=== PATIENT | female | born 1940 | race Caucasian/White ===

== ENCOUNTER 2020-11-04 00:03 | Emergency (ER) | payer MEDICARE ==
[~2020-11-04] VITALS: Ht 154.9 cm; Wt 58.2 kg
--- NOTE | 2020-11-04 01:02 | PHYS DOC ---
Past Medical History Past Medical History: Dementia Additional Past Medical Histor: Parkinsonism Past Medical History Limited secondary to dementia Additional Past Surgical Histo: Cataract Past Surgical History Limited secondary to dementia Smoking Status: Never Smoker Alcohol Use: None Drug Use: None Social History Limited secondary to dementia General Adult EDM: Chief Complaint: MECHANICAL FALL HPI: HPI: Patient is a 79 year old female who presents with chief complaint of midline thoracic back pain after a ground level fall earlier this evening. Patient was found down in her living room by her . EMS was called and able to get patient off ground after 15 minutes. Cervical collar placed. Patient denies radiation. Denies associated symptoms. Denies syncopal episode or loss of consciousness. Fall was not witnessed. Patient denies fever, chills, changes in urine output or consistency. Patient attributes recent history of falls to her change in medications for previous diagnosis of Parkinson disease. Pain severity 6/10. History of present illness limited secondary to dementia. Review of Systems: Review of Systems: Constitutional: Denies fever or chills Eyes: Denies redness or eye pain HENT: Denies nasal congestion or epistaxis Respiratory: Denies cough or shortness of breath Musculoskeletal: Denies joint pain. Reports thoracic back pain. Integument: Denies laceration Neurologic: Denies headache Review of systems limited secondary to dementia Heart Score: C/O Chest Pain: No Allergies: Allergies: Allergies Coded Allergies Type Severity Reaction Last Updated Verified Sulfa (Sulfonamide Antibiotics) Allergy Unknown 11/04/20 Yes Physical Exam: PE: Constitutional: Well developed, well nourished, mild distress, non-toxic appearance HENT: Normocephalic, atraumatic Eyes: PERRL, EOMI, conjunctiva normal, no discharge Neck: Normal range of motion, no tenderness, supple Lungs & Thorax: No respiratory distress, equal chest rise and fall Abdomen: Soft, no tenderness Skin: Warm, dry, no erythema, no rash. Superficial abrasion on left side mid- thoracic region of back. Back: Left sided thoracic tenderness, no CVA tenderness Extremities: No tenderness, ROM intact, 1+ pre-tibial edema bilaterally. Neurologic: Alert and oriented X 3, normal motor function, normal sensory function, no focal deficits noted. Parkinson disease. Mild dementia. Psychologic: Affect normal, judgment normal EKG: EKG: Sinus Rhythm. Rate 76 bpm. QRS 82 mm. Qtc 450 ms. Normal [place]. NO STEMI. Read by Abhijit Daniel D.O. at 0020. [] Radiology/Procedures: Radiology/Procedures: PROCEDURE: CT head without contrast. CT cervical spine without contrast. CT thoracic spine without contrast. CT lumbar spine without contrast. PQRS statement: CT scans at this facility use dose reduction including either au tomated exposure control, iterative reconstructions, and /or weight based radiation dosing via mA and kV modification when appropriate to reduce radiation dose to as low as reasonably achievable. HISTORY: There is mild generalized brain atrophy. No intracranial hemorrhage, mass, hydrocephalus, extra-axial fluid collections or infarction. Imaged orbits, mastoids and bones are unremarkable. IMPRESSION: No acute intracranial abnormality. CT cervical spine findings: Craniocervical junction intact. Cervical vertebral body height and alignment intact. No fracture of the cervical spine. Apical pulmonary interstitial thickening may be edema. Multilevel cervical disc height loss as well as disc herniations and disc osteophytes and uncovertebral and facet spurring with multilevel spinal canal and neural foraminal stenoses. The paraspinal tissues are unremarkable. IMPRESSION: No acute osseous injury of the cervical spine. Cervical disc disease. Thoracic spine findings: Acute traumatic mildly buckled left posterior seventh rib fracture. Acute traumatic nondisplaced fracture of the left posterior ninth rib at the costovertebral junction. Thoracic vertebral body height and alignment intact. No fracture of the thoracic spine. No spondylolysis defect. Multilevel thoracic disc height loss and scattered shallow disc bulges and protrusions which at the mid to lower thoracic spine could contribute to mild spinal canal stenosis. Diffuse pulmonary interstitial thickening likely edema. IMPRESSION: 1. No acute osseous injury of the thoracic spine. 2. Acute traumatic posterior left seventh and ninth rib fractures. 3. Pulmonary interstitial edema. CT lumbar spine findings: Lumbar vertebral body height and alignment intact. Grade 1 anterolisthesis of L4 on L5. No fracture. No spondylolysis defect. There are lumbar disc bulges and facet spurring with spinal canal and neural foraminal stenoses at several levels. There is severe spinal canal stenosis at L3-L4. There is markedly severe spinal canal stenosis at L4-L5 with probable marked compression of the dural sac as well as severe neural foraminal stenoses. At L5-S1 there is probable moderate to severe spinal canal stenosis and severe neural foraminal stenoses. IMPRESSION: No acute osseous injury of the lumbar spine. Lumbar disc disease and facet arthrosis as described above. Electronically signed by: Kiko Holbrook MD (11/04/2020 1:41 AM) JESSIE PROCEDURE: CHEST AP ONLY AP chest x-ray HISTORY: Rib fractures after fall. FINDINGS: Heart size normal. Mediastinal silhouette is normal. Mild pulmonary interstitial thickening likely edema. No pneumothorax. Mild pleural thickening versus a tiny pleural effusion along the left diaphragm blunting the lateral angle. Calcified granulomas right lung base. The left posterior seventh and ninth rib fractures on prior CT thoracic spine imaging cannot be visualized on this x-ray. IMPRESSION: Pulmonary interstitial edema. No pneumothorax. See above. Electronically signed by: Kiko Holbrook MD (11/04/2020 2:19 AM) JESSIE Course & Med Decision Making: Course & Med Decision Making Patient is a 79 year old female who presents with chief complaint of thoracic back pain after a ground level fall earlier this evening. Patient was found down in her living room by her . EMS was called and able to get patient off ground after 15 minutes. Cervical collar placed. Denies syncopal episode or loss of consciousness. Fall was not witnessed. Patient denies fever, chills, changes in urine output or consistency. Patient has PMH of parkinson disease with associated unsteady gait and dementia. Patient reports gait instability is getting worse after recent change in medications. Recent history of ground level falls with last event being 3 weeks prior to today's fall. Pain severity 6/10. Pain was addressed medically. CT of cervical, thoracic and lumbar spine was obtained. Cervical spine cleared of fracture and cervical collar was removed. Fracture to posterior left rib 7 and 9 were found without pneumothorax. Chest XR was ordered to rule out pneumothorax. Patient was given incentive spirometer with instruction for atelectasis PPX. Labs were drawn along with UA to rule out UTI. Patient was found to have urinary retention of 500 mL via bladder scan ult rasound. Horta catheter was placed for Urinary retention. 750 mL of urine output. Pertinent Labs and Imaging studies reviewed. (See chart for details). Patient offered admission for pain control. Patient elected to be discharge home with her . Patient stable and discharged at her request with outpatient follow-up with PCP or Urologist for Horta removal in 2-3 days. Discussed findings and plan with patient and , who acknowledge understanding and agreement. [] Jacqueline Disclaimer: Jacqueline Disclaimer: This electronic medical record was generated, in whole or in part, using a voice recognition dictation system. Departure Departure Impression: Primary Impression: Fall Qualified Codes: W19.XXXA - Unspecified fall, initial encounter Additional Impressions: Rib fractures Qualified Codes: S22.42XA - Multiple fractures of ribs, left side, initial encounter for closed fracture Acute urinary retention Disposition: 01 DC HOME SELF CARE/HOMELESS Condition: STABLE Patient Instructions: Fall Prevention and Home Safety, [id number], Horta Catheter Care, Adult, Incentive Spirometer, Rib Fracture, [id number], Urinary Retention, Acute, Female, [id number] Additional Instructions: Ice to area of discomfort 20 minutes on then leave off for next 20 minutes. Repeat several times daily as needed for the next few days. Please follow closely with your family physician and/or urologist for removal of Horta catheter in the next 2 to 3 days. [facility] [address] [address] Scripts Acetaminophen With Codeine (ACETAMINOPHEN-COD #3 TABLET) 1 Each Tablet 1 TAB PO PRN Q6HRS PRN for PAIN, #14 TAB Prov: ABHIJIT DANIEL DO 11/04/20 ABHIJIT DANIEL DO Nov 04, 2020 01:02
--- NOTE | 2020-11-04 01:43 | RAD ---
CT head without contrast. CT cervical spine without contrast. CT thoracic spine without contrast. CT lumbar spine without contrast. PQRS statement: CT scans at this facility use dose reduction including either automated exposure cont rol, iterative reconstructions, and /or weight based radiation dosing via mA and kV modification when appropriate to reduce radiation dose to as low as reasonably achievable. HISTORY: There is mild generalized brain atrophy. No intracranial hemorrhage, mass, hydrocephalus, ex tra-axial fluid collections or infarction. Imaged orbits, mastoids and bones are unremarkable. IMPRESSION: No acute intracranial abnormality. CT cervical spine findings: Craniocervical junction intact. Cervical vertebral body height and alignm ent intact. No fracture of the cervical spine. Apical pulmonary interstitial thickening may be edema. Multilevel cervical disc height loss as well as disc herniations and disc osteophytes and uncoverteb ral and facet spurring with multilevel spinal canal and neural foraminal stenoses. The paraspinal tis sues are unremarkable. IMPRESSION: No acute osseous injury of the cervical spine. Cervical disc disease. Thoracic spine findings: Acute traumatic mildly buckled left posterior seventh rib fracture. Acute tr aumatic nondisplaced fracture of the left posterior ninth rib at the costovertebral junction. Thoraci c vertebral body height and alignment intact. No fracture of the thoracic spine. No spondylolysis def ect. Multilevel thoracic disc height loss and scattered shallow disc bulges and protrusions which at the mid to lower thoracic spine could contribute to mild spinal canal stenosis. Diffuse pulmonary int erstitial thickening likely edema. IMPRESSION: 1. No acute osseous injury of the thoracic spine. 2. Acute traumatic posterior left seventh and ninth rib fractures. 3. Pulmonary interstitial edema. CT lumbar spine findings: Lumbar vertebral body height and alignment intact. Grade 1 anterolisthesis of L4 on L5. No fracture. No spondylolysis defect. There are lumbar disc bulges and facet spurring wi th spinal canal and neural foraminal stenoses at several levels. There is severe spinal canal stenosi s at L3-L4. There is markedly severe spinal canal stenosis at L4-L5 with probable marked compression of the dural sac as well as severe neural foraminal stenoses. At L5-S1 there is probable moderate to severe spinal canal stenosis and severe neural foraminal stenoses. IMPRESSION: No acute osseous injury of the lumbar spine. Lumbar disc disease and facet arthrosis as d escribed above. Electronically signed by: Kiko Holbrook MD (11/04/2020 1:41 AM) [facility]
[2020-11-04] MEDS ORDERED: fentaNYL PF VIAL 100 MCG/2 ML VIAL IV ONE (02:15)
--- NOTE | 2020-11-04 02:22 | RAD ---
AP chest x-ray HISTORY: Rib fractures after fall. FINDINGS: Heart size normal. Mediastinal silhouette is normal. Mild pulmonary interstitial thickening likely edema. No pneumothorax. Mild pleural thickening versus a tiny pleural effusion along the left diaphragm blunting the lateral angle. Calcified granulomas right lung base. The left posterior seven th and ninth rib fractures on prior CT thoracic spine imaging cannot be visualized on this x-ray. IMPRESSION: Pulmonary interstitial edema. No pneumothorax. See above. Electronically signed by: Kiko Holbrook MD (11/04/2020 2:19 AM) [facility]
[2020-11-04] MEDS ORDERED: IV NORMAL SALINE 1000ML BAG 1,000 ML IV ONE (03:00)
[2020-11-04 03:12] LABS: BASO # 0.1 x10^3/uL (0.0-0.2); BASO % 1 % (0-3); EOS % 0 % (0-3); HEMATOCRIT 37.2 % (36.0-47.0); HEMOGLOBIN 12.6 g/dL (12.0-15.5); LYMPH # 1.5 x10^3/uL (1.0-4.8); LYMPH % 14 % (24-48); MEAN CORPUSCULAR HEMOGLOBIN 32 pg (25-35); MEAN CORPUSCULAR HGB CONC 34 g/dL (31-37); MEAN CORPUSCULAR VOLUME 95 fL (79-100); MONO # 0.5 x10^3/uL (0.0-1.1); MONO % 5 % (0-9); NEUT # 8.4 x10^3/uL (1.8-7.7); NEUT % 80 % (31-73); PLATELET COUNT 198 x10^3/uL (140-400); RED BLOOD COUNT 3.91 x10^6/uL (3.50-5.40); RED CELL DISTRIBUTION WIDTH 13.8 % (11.5-14.5); WHITE BLOOD COUNT 10.5 x10^3/uL (4.0-11.0)
[2020-11-04 03:21] LABS: CALCIUM 8.8 mg/dL (8.5-10.1); CREATININE 0.9 mg/dL (0.6-1.0); GFR 60.2; POTASSIUM 3.9 mmol/L (3.5-5.1)
[2020-11-04 03:27] LABS: ALBUMIN 3.2 g/dL (3.4-5.0); ALBUMIN/GLOBULIN RATIO 0.9 (1.0-1.7); MAGNESIUM 2.1 mg/dL (1.8-2.4); TOTAL BILIRUBIN 0.2 mg/dL (0.2-1.0); TOTAL PROTEIN 6.6 g/dL (6.4-8.2)
[2020-11-04 03:35] LABS: CREATINE KINASE 45 U/L (26-192)
--- NOTE | 2020-11-04 04:02 | EKG ---
[facility] [address] [place] [address] Test Date: 2020-11-04 Test Time: 00:18:30 Pat Name: ANNA MAC Department: Room: Gender: F [employer]: : 1940 Requested By: NEAL DANIEL Order Number: [id number] Reading MD: Measurements Intervals [place] Rate: 76 P: 62 [place]: 164 QRS: 61 QRSD: 82 T: 28 QT: 396 QTc: 450 Interpretive Statements SINUS RHYTHM NORMAL ECG RI6.02 No previous ECG available for comparison
[2020-11-04 04:06] LABS: BILIRUBIN,URINE NEGATIVE (NEG); CLARITY,URINE CLEAR; COLOR,URINE YELLOW; NITRITE,URINE NEGATIVE (NEG); PH,URINE 6.5 (<5.0-8.0); PROTEIN,URINE NEGATIVE (NEG-TRACE); UROBILINOGEN,URINE 0.2 mg/dL (0.2 mg/dL)
[2020-11-04 04:13] LABS: BACTERIA,URINE 0 /HPF (0-FEW)
[2020-11-04] MEDS ORDERED: ACET1TAB33 PO (04:27)
[2020-11-04] MEDS ORDERED: ACETAMINOPHEN/CODEINE 300/30MG TABLET. PO ONE (04:45)
[2020-11-04 05:05] VITALS: BP 150/64
== END 2020-11-04 05:10 | disposition home or self-care (01) ==
LOC: ER 00:03
DX: S22.42XA Multiple fractures of ribs, left side, initial encounter for closed fracture (principal); R33.9 Retention of urine, unspecified; M54.6 Pain in thoracic spine; F03.90 Unspecified dementia, unspecified severity, without behavioral disturbance, psychotic disturbance, mood disturbance, and anxiety; G20 Parkinson's disease; Z88.2 Allergy status to sulfonamides; W18.39XA Other fall on same level, initial encounter; Y93.89 Activity, other specified; Y92.89 Other specified places as the place of occurrence of the external cause; Y99.8 Other external cause status
CPT/HCPCS: 36415; 51702; 70450; 71045; 72125; 72128; 72131; 80053; 81001; 82553; 83735; 84484; 85025; 87086; 93005; 96361; 96374; 99285; J3010; J7030